=== PATIENT | female | born 1995 | race Caucasian/White ===

== ENCOUNTER 2017-01-07 13:38 | Emergency (ER) | payer BC, OTHER ==
[~2017-01-07] VITALS: Ht 167.6 cm; Wt 63.0 kg
[2017-01-07 13:43] VITALS: BP 111/67
[2017-01-07 14:35] LABS: BACTERIA,URINE MOD /HPF (0-FEW); BILIRUBIN,URINE NEG (NEG); CLARITY,URINE HAZY; COLOR,URINE YELLOW; GLUCOSE,URINE NEG (NEG); NITRITE,URINE NEG (NEG); RBC,URINE RARE /HPF (0-2); SQUAMOUS EPITHELIAL CELL,UR MANY /LPF; UROBILINOGEN,URINE 0.2 mg/dL (0.2 mg/dL); YEAST,URINE PRESENT /HPF
[2017-01-07] MEDS ORDERED: ONDANSETRON ODT 4 MG TAB.RAPDIS PO ONE (15:00)
[2017-01-07] MEDS ORDERED: FAMOTIDINE 20 MG TABLET PO ONE (15:00)
[2017-01-07] MEDS ORDERED: LIDO:MAALOX 1:1 20 ML SINGLE DOSE PO ONE (15:15)
--- NOTE | 2017-01-07 15:17 | ED.ADGEN ---
Past History Past Medical History: No Pertinent History Past Surgical History: No Surgical History Alcohol Use: None Drug Use: None Adult General Chief Complaint Chief Complaint Epigastric abdominal pain HPI HPI Patient is a 21-year-old female presents with epigastric, pain for 2 days. Patient states symptoms began with vomiting and diarrhea, vomiting and diarrhea have since subsided, but patient continues to have nausea and epigastric pain worse with eating and drinking. No fever chills or sweats. No hematuria dysuria or urinary frequency urgency. Denies dizziness or lightheadedness. No other acute symptoms or complaints.No prior abdominal surgeries. Review of Systems Review of Systems Review symptoms as per history of present illness. All other review symptoms are negative. Current Medications Current Medications Current Medications Medications (Trade) Dose Ordered Sig/Angie Start Time Stop Time Status Last Admin Dose Admin Famotidine (Pepcid) 20 mg 1X ONCE 01/07/17 15:00 01/07/17 15:01 DC 01/07/17 14:54 20 MG Multi-Ingredient Mouthwash/Gargle (Gi Cocktail) 20 ml 1X ONCE 01/07/17 15:15 01/07/17 15:16 01/07/17 15:08 20 ML Ondansetron HCl (Zofran Odt) 4 mg 1X ONCE 01/07/17 15:00 01/07/17 15:01 DC 01/07/17 14:54 4 MG Allergies Allergies Allergies Coded Allergies Type Severity Reaction Last Updated Verified No Known Drug Allergies 06/27/15 No Physical Exam Physical Exam Constitutional: Well developed, well nourished, no acute distress, non-toxic appearance. HENT: Normocephalic, atraumatic, bilateral external ears normal, oropharynx moist, no oral exudates, nose normal. Eyes: PERRLA, EOMI, conjunctiva normal. Neck: Normal range of motion, no tenderness, supple. Cardiovascular:Heart rate regular rhythm, no murmur. Lungs & Thorax: Bilateral breath sounds clear to auscultation. Abdomen: Bowel sounds normal, soft, mild epigastric pain, tenderness. Skin: Warm, dry. Back: No tenderness. Extremities: No tenderness. Neurologic: Alert and oriented X 3, normal motor function, normal sensory function, no focal deficits noted. Psychologic: Affect normal, judgement normal, mood normal. Current Patient Data Vital Signs Vital Signs Date Time Temp Pulse Resp B/P (MAP) Pulse Ox O2 Delivery O2 Flow Rate FiO2 01/07/17 13:43 97.6 86 14 97 Room Air Lab Results Laboratory Tests Test 01/07/17 14:00 01/07/17 14:11 Urine Collection Type Unknown Urine Color Yellow Urine Clarity Hazy Urine pH 7.5 Urine Specific [place] 1.020 Urine Protein Neg (NEG-TRACE) Urine Glucose (UA) Neg mg/dL (NEG) Urine Ketones (Stick) Trace mg/dL (NEG) Urine Blood Neg (NEG) Urine Nitrite Neg (NEG) Urine Bilirubin Neg (NEG) Urine Urobilinogen Dipstick 0.2 mg/dL (0.2 mg/dL) Urine Leukocyte Esterase Mod (NEG) Urine RBC Rare /HPF (0-2) Urine WBC 11-20 /HPF (0-4) Urine Squamous Epithelial Cells Many /LPF Urine Bacteria Mod /HPF (0-FEW) Urine Yeast Present /HPF POC Urine HCG, Qualitative hcg negative (Negative) EKG EKG [] Radiology/Procedures Radiology/Procedures [] Course & Med Decision Making Course & Med Decision Making Pertinent Labs and Imaging studies reviewed. (See chart for details) [And soft nonsurgical and repeat evaluation. Epigastric pain resolved with treatment. Final Impression Final Impression [1. Epigastric pain 2. Nausea vomiting] Problems: Dragon Disclaimer Dragon Disclaimer This electronic medical record was generated, in whole or in part, using a voice recognition dictation system. PARDEEP MERCER DO Jan 07, 2017 15:17
== END 2017-01-07 15:26 | disposition home or self-care (01) ==
LOC: ER 13:38
DX: R10.13 Epigastric pain (principal); R11.2 Nausea with vomiting, unspecified; R19.7 Diarrhea, unspecified
CPT/HCPCS: 81001; 81025; 87086; 99284; Q0162

== ENCOUNTER 2017-03-11 11:25 | Emergency (ER) | payer BC, OTHER ==
[~2017-03-11] VITALS: Ht 167.6 cm; Wt 63.0 kg
[2017-03-11 11:30] VITALS: BP 120/75
--- NOTE | 2017-03-11 12:08 | PHYS DOC ---
General Chief Complaint: ABDOMINAL PAIN Stated Complaint: ABDOMINAL PAIN Time Seen by MD: :29 Source: patient, old records Exam Limitations: no limitations Problems: History of Present Illness Initial Comments Pt is 22/F to ED c/o abdominal discomfort. Pt states she developed upper abdominal pain (she points to epigastrium) last night while eating some spicy foods. She describes the pain as achy/burning, says she did have some burping and admits to prior GERD symptoms. Her GERD symptoms resolved last night several hours after eating. She has been seen in the emergency department for GERD in the past but says she hasn't ever undertaken any dietary and lifestyle modifications and takes no daily medications for her GERD symptoms. She denies alcohol intake or excessive ibuprofen use, she's had no nausea or vomiting no fever chills and her appetite is intact. Today less than an hour before arrival she says she noticed shortly after eating that she had upper abdominal discomfort again. She says this pain is different as she has no pain at rest but has soreness with movement. It is located at the upper central abdomen she denies bloating flatulence or any other symptoms. No pre-arrival treatment. Patient started menstruating yesterday but says her periods have been irregular since the of her last child and she requests a urine test. Timing/Duration: 1 hour Severity: mild Modifying Factors: worse with movement, improves with rest Associated Symptoms: other Allergies: Coded Allergies: No Known Drug Allergies (Unverified , 06/27/15) Past Medical History Medical History: GERD Surgical History: noncontributory LMP (Females 10-50): this week Social History Smoker: non-smoker Alcohol: none Drugs: none Review of Systems Constitutional: denies chills, denies diaphoresis, denies fever, denies malaise EENTM: denies throat swelling, denies mouth swelling Respiratory: denies cough, denies shortness of breath Cardiovascular: denies chest pain, denies palpitations, denies syncope Gastrointestinal: see HPI Genitourinary: denies dysuria, denies frequency, denies hematuria Musculoskeletal: denies back pain, denies joint swelling, muscle pain, denies neck pain Psychiatric/Neurological: denies headache, denies numbness, denies paresthesia Physical Exam General Appearance: WD/WN, no apparent distress Eyes: bilateral eye normal inspection, bilateral eye PERRL, bilateral eye EOMI Ear, Nose, Throat: hearing grossly normal, normal ENT inspection, normal pharynx Neck: non-tender, supple Respiratory: normal breath sounds, no respiratory distress Cardiovascular: normal peripheral pulses, regular rate, rhythm Gastrointestinal: normal bowel sounds, soft (nondistended, negative Mann and McBurney and I am unable to reproduce her abdominal discomfort with palpation essentially normal exam), no organomegaly Rectal: deferred Back: no CVA tenderness, no vertebral tenderness Extremities: non-tender, normal inspection Neurologic/Psychiatric: small piece cutter II-XII nml as tested, no motor/sensory deficits, alert, oriented x 3 Skin: normal color, warm/dry Orders, Labs, Meds PATIENT: LATANYA ALMANZAR ACCOUNT: [id number] : 1995 LOCATION: ER AGE: 22 SEX: F EXAM STATUS: REG ER ORD. PHYSICIAN: LORIE RENTERIA DO REASON: recurrant epigastric pain PROCEDURE: ACUTE ABDOMEN SERIES Acute abdominal series to include a PA chest radiograph 03/11/2017 Clinical History: Epigastric pain for one day. A PA digital radiograph of the chest was obtained. Supine and erect AP digital radiographs of the abdomen/pelvis were obtained. No previous studies are available for comparison. The cardiac and mediastinal silhouettes are within normal limits in size and configuration. No pulmonary infiltrate is seen. No pleural effusion or pneumothorax is noted. The abdominal bowel gas pattern is nonobstructive. There is no evidence of free air. No radiopaque calculus is seen. The osseous structures are grossly intact. Impression: Negative study. DICTATED AND SIGNED BY: ILDEFONSO FRANK MD DATE: 03/11/17 1200 CC: SHIRA WILD DO; LORIE RENTERIA DO ~ Lipase 97, urine negative, urinalysis with large blood (menses) and leukocyte esterase Patient had no new or progressive symptoms throughout the ED course. Her vital signs remained normal and her evaluation in the emergency department has been reassuring. We'll treat empirically for UTI based on the presence of leukocyte esterase, I discussed urine culture and advised the patient that it would be resulted within 2-3 days. I discussed symptomatic treatment and dietary changes as well as close PCP follow-up for urine culture results and recheck. I discussed the need for GI evaluation and EGD with untreated reflux of 3 years duration. Patient expressed agreement and understanding with the treatment plan. Departure Time of Disposition: 13:35 Disposition: 01 HOME, SELF-CARE Diagnosis: GERD, UTI Condition: GOOD Patient Instructions: Diet for Gastroesophageal Reflux Disease, Adult, Easy-to- Read, Urinary Tract Infection Additional Instructions: Rest, no strenuous activity. Aggressive hydration with gatorade, water. OTC pepcid twice daily. Please review dietary recommendations in provided handout. Rx: bactrim ds Follow up with your doctor in 7-10 days for recheck and urine culture results. Return to ED with new or changing symptoms. LORIE RENTERIA DO Mar 11, 2017 12:08
[2017-03-11] MEDS ORDERED: LIDO:MAALOX 1:1 20 ML SINGLE DOSE PO ONE (12:10)
[2017-03-11] MEDS ORDERED: FAMOTIDINE 20 MG TABLET PO ONE (12:10)
--- NOTE | 2017-03-11 12:11 | RAD ---
Acute abdominal series to include a PA chest radiograph 03/11/2017 Clinical History: Epigastric pain for one day. A PA digital radiograph of the chest was obtained. Supine and erect AP digital radiographs of the abdomen/pelvis were obtained. No previous studies are available for comparison. The cardiac and mediastinal silhouettes are within normal limits in size and configuration. No pulmonary infiltrate is seen. No pleural effusion or pneumothorax is noted. The abdominal bowel gas pattern is nonobstructive. There is no evidence of free air. No radiopaque calculus is seen. The osseous structures are grossly intact. Impression: Negative study.
[2017-03-11 13:13] LABS: BILIRUBIN,URINE NEG (NEG); CLARITY,URINE CLOUDY; COLOR,URINE PINK; GLUCOSE,URINE NEG (NEG); NITRITE,URINE NEG (NEG); UROBILINOGEN,URINE 0.2 mg/dL (0.2 mg/dL)
[2017-03-11] MEDS ORDERED: SMZ/TMP 800/160MG TABLET. PO ONE (13:45)
== END 2017-03-11 13:45 | disposition home or self-care (01) ==
LOC: ER 11:25
DX: N39.0 Urinary tract infection, site not specified (principal); K21.9 Gastro-esophageal reflux disease without esophagitis
CPT/HCPCS: 36415; 74022; 81003; 81025; 83690; 99285-25

== ENCOUNTER 2017-03-14 10:15 | Emergency (ER) | payer OTHER ==
[~2017-03-14] VITALS: Ht 167.6 cm; Wt 63.0 kg
[2017-03-14] MEDS ORDERED: DIPH1TAB PO (10:57)
[2017-03-14] MEDS ORDERED: DICY10CA53 PO (10:57)
[2017-03-14] MEDS ORDERED: ONDA8TAB12 PO (10:57)
--- NOTE | 2017-03-14 10:57 | PHYS DOC ---
Past History Past Medical History: GERD Past Surgical History: No Surgical History Smoking: Non-smoker Alcohol Use: None Drug Use: None Adult General Chief Complaint Chief Complaint: MULTIPLE COMPLAINTS [facility] sHe is a pleasant 22-year-old female who was seen earlier this week for a complaint of urinary tract infection. She is appropriate started on Bactrim. Since that time patient felt a little bit of crampy abdominal pain throughout her abdomen mostly on the right left side and she believed to be associate with the way she was sleeping. She is also developed some nonbloody is non-mucoid stool described as loose and diarrheal. These symptoms are intermittent. She is also does express some ablative nausea without vomiting. Patient denies any fevers or chills denies any other sick contacts she also planes of menstrual cramping and she is presently on her menstrual period. Patient denies any fever , chills, headache, back pain, chest pain or other complaint. She is also supposed be on Pepcid right now for her reflux but she has not been taking this medication. She denies any travel outside the country, denies any consumption of raw food, handling of poultry, handling of reptiles, or consumption of uncooked fish. Review of Systems Review of Systems Constitutional: Denies fever or chills [] Eyes: Denies change in visual acuity, redness, or eye pain [] HENT: Denies nasal congestion or sore throat [] Respiratory: Denies cough or shortness of breath [] Cardiovascular: No additional information not addressed in HPI [] GI: She has complained of abdominal pain that is crampy in nature with nausea without vomiting diarrhea without blood or mucus. : Denies dysuria or hematuria [] Musculoskeletal: Denies back pain or joint pain [] Integument: Denies rash or skin lesions [] Neurologic: Denies headache, focal weakness or sensory changes [] Endocrine: Denies polyuria or polydipsia [] Allergies Allergies Allergies Coded Allergies Type Severity Reaction Last Updated Verified No Known Drug Allergies 06/27/15 No Physical Exam Physical Exam Vital signs recorded on the chart all within normal limits. Constitutional: Well developed, well nourished, no acute distress, non-toxic appearance. [] HENT: Normocephalic, atraumatic, bilateral external ears normal, slightly dry oropharynx, no oral exudates, nose normal. [] Eyes: PERRLA, EOMI, conjunctiva normal, no discharge. [] Cardiovascular:Heart rate regular rhythm, no murmur [] Lungs & Thorax: Bilateral breath sounds clear to auscultation [] Abdomen: Bowel sounds normal, soft, no tenderness, no masses, no pulsatile masses she has no guarding rebound or organomegaly no Mann's or McBurney's point tenderness palpation Skin: Warm, dry, no erythema, no rash. [] Back: No tenderness, no CVA tenderness. [] Extremities: No tenderness, no cyanosis, no clubbing, ROM intact, no edema. [] Neurologic: Alert and oriented X 3 Psychologic: Affect normal, judgement normal, mood normal. [] EKG EKG [] Radiology/Procedures Radiology/Procedures [] Course & Med Decision Making Course & Med Decision Making Pertinent Labs and Imaging studies reviewed. (See chart for details) she presents with crampy abdominal pain and diarrhea that began after the initiation of Bactrim. This may actually be a side effect of that medication. Patient's abdomen is soft without any focal tenderness to the right lower quadrant she is not peritoneal. She demonstrates no fever she has normal appetite with nausea and she is hungry at this time. Patient demonstrates no evidence of surgical abdomen. Her point care urine test is negative. She was able to tolerate a fluid challenge as well as nausea is improved with oral Zofran. We discussed completed a course of antibiotics which is appropriate given her UTI. She'll be given supportive medications like Lomotil as well as Bentyl for crampy abdominal pain and close follow-up with her primary care doctor. At this time I do not believe she 7 from appendicitis or small bowel obstruction. My abdominal pain differential includes but not limited to ectopic , UTI, pyonephritis, cholecystitis, cholelithiasis, pancreatitis, appendicitis, small bowel obstruction, large bowel obstruction, diverticulosis, Diverticulum, intussusception, volvulus, irritable bowel disease, Crohn's or ulcerative colitis, considered upon arrival [] Dragon Disclaimer Dragon Disclaimer This chart was dictated in whole or in part using Voice Recognition software in a busy, high-work load, and often noisy Emergency Department environment. It may contain unintended and wholly unrecognized errors or omissions. Departure Departure: Impression: Primary Impression: Diarrhea Additional Impressions: Menstrual cramps Nausea Abdominal pain Disposition: HOME, SELF-CARE Condition: IMPROVED Referrals: SHIRA WILD DO (PCP) Patient Instructions: Abdominal Pain, Antibiotic-Associated Diarrhea-Brief, Diarrhea, Diet for Diarrhea, Adult, Nausea, Adult Additional Instructions: Is return for any new or increasing symptoms especially if the pain localizes in the right lower quadrant. It is my assessment today do not is suffering from appendicitis. But this can be developed in the future. Please return for any question or concern she might have. Scripts Ondansetron (ZOFRAN ODT) 8 Mg Tab.rapdis 4 MG PO TID for 5 Days Prov: QUINCY CÁRDENAS MD 03/14/17 Diphenoxylate Hcl/Atropine (LOMOTIL TABLET) 1 Each Tablet 1 TAB PO QID, #20 TAB Prov: QUINCY CÁRDENAS MD 03/14/17 Dicyclomine Hcl (BENTYL) 10 Mg Capsule 1 CAP PO TID, #15 CAP.EC Prov: QUINCY CÁRDENAS MD 03/14/17 Problem Qualifiers QUINCY CÁRDENAS MD Mar 14, 2017 10:57
[2017-03-14] MEDS ORDERED: ONDANSETRON ODT 4 MG TAB.RAPDIS PO ONE (11:00)
[2017-03-14 11:30] VITALS: BP 118/62
== END 2017-03-14 11:33 | disposition home or self-care (01) ==
LOC: ER 10:15
DX: N94.6 Dysmenorrhea, unspecified (principal); K21.9 Gastro-esophageal reflux disease without esophagitis
CPT/HCPCS: 81025; 99283; Q0162

== ENCOUNTER 2017-05-18 09:52 | Emergency (ER) | payer OTHER ==
[~2017-05-18] VITALS: Ht 167.6 cm; Wt 54.4 kg
[~2017-05-18 09:52] MED LIST: DICY10CA53 PO; DIPH1TAB PO; ONDA8TAB12 PO
[2017-05-18 11:16] LABS: BILIRUBIN,URINE NEG (NEG); CLARITY,URINE CLOUDY; COLOR,URINE YELLOW; GLUCOSE,URINE NEG (NEG); NITRITE,URINE NEG (NEG); UROBILINOGEN,URINE 1 mg/dL (0.2 mg/dL)
[2017-05-18 11:17] LABS: AMORPHOUS SEDIMENT,UR PRESENT /HPF; BACTERIA,URINE FEW /HPF (0-FEW); RBC,URINE RARE /HPF (0-2); SQUAMOUS EPITHELIAL CELL,UR MANY /LPF
--- NOTE | 2017-05-18 12:04 | PHYS DOC ---
Past History Past Medical History: Anxiety, Constipation, GERD, UTI Past Surgical History: Tonsillectomy Smoking: Non-smoker Alcohol Use: None Drug Use: None Adult General Chief Complaint Chief Complaint: ANXIETY/PANIC ATTACK HPI HPI Patient is a 22 year old F who presents with anxiety. Lola states that she has had more frequent anxiety attacks over the past several days. She describes occasional sharp chest pain associated with these attacks. She also describes mild dizziness associated with attacks. Her last attack was last night. She denies any current symptoms at this time. Review of Systems Review of Systems Constitutional: Denies fever or chills [] Eyes: Denies change in visual acuity, redness, or eye pain [] HENT: Denies nasal congestion or sore throat [] Respiratory: Denies cough or shortness of breath [] Cardiovascular: No additional information not addressed in HPI [] GI: Denies abdominal pain, nausea, vomiting, bloody stools or diarrhea [] : Denies dysuria or hematuria [] Musculoskeletal: Denies back pain or joint pain [] Integument: Denies rash or skin lesions [] Neurologic: Denies headache, focal weakness or sensory changes [] Endocrine: Denies polyuria or polydipsia [] Family History Family History Reviewed Current Medications Current Medications Medications reviewed Allergies Allergies Allergies Coded Allergies Type Severity Reaction Last Updated Verified No Known Drug Allergies 06/27/15 No Physical Exam Physical Exam Constitutional: Well developed, well nourished, no acute distress, non-toxic appearance. [] HENT: Normocephalic, atraumatic Eyes: PERRLA, EOMI, conjunctiva normal, no discharge. [] Neck: Normal range of motion, no tenderness, supple, no stridor. [] Cardiovascular:Heart rate regular rhythm, no murmur [] Lungs & Thorax: Bilateral breath sounds clear to auscultation [] Abdomen: Bowel sounds normal, soft, no tenderness, no masses, no pulsatile masses. [] Skin: Warm, dry, no erythema, no rash. [] Back: No tenderness, no CVA tenderness. [] Extremities: No tenderness, no cyanosis, no clubbing, ROM intact, no edema. [] Neurologic: Alert and oriented X 3, normal motor function, normal sensory function, no focal deficits noted. [] Psychologic: Affect normal, judgement normal, mood normal. [] Current Patient Data Vital Signs Vital Signs Date Time Temp Pulse Resp B/P (MAP) Pulse Ox O2 Delivery O2 Flow Rate FiO2 05/18/17 10:03 97.6 90 18 100 Lab Results Laboratory Tests Test 05/18/17 10:42 05/18/17 11:00 Urine Collection Type Unknown Urine Color Yellow Urine Clarity Cloudy Urine pH 6.5 Urine Specific [place] 1.025 Urine Protein 30 mg/dl (NEG-TRACE) Urine Glucose (UA) Neg mg/dL (NEG) Urine Ketones (Stick) 40 mg/dL (NEG) Urine Blood Neg (NEG) Urine Nitrite Neg (NEG) Urine Bilirubin Neg (NEG) Urine Urobilinogen Dipstick 1 mg/dL (0.2 mg/dL) Urine Leukocyte Esterase Mod (NEG) Urine RBC Rare /HPF (0-2) Urine WBC 11-20 /HPF (0-4) Urine Squamous Epithelial Cells Many /LPF Urine Amorphous Sediment Present /HPF Urine Bacteria Few /HPF (0-FEW) Urine Mucus Marked /LPF POC Urine HCG, Qualitative hcg negative (Negative) EKG EKG Normal sinus rhythm, no ectopy, normal QRS, no ST changes Radiology/Procedures Radiology/Procedures Imaging was declined Course & Med Decision Making Course & Med Decision Making Pertinent Labs and Imaging studies reviewed. (See chart for details) [] Dragon Disclaimer Dragon Disclaimer This chart was dictated in whole or in part using Voice Recognition software in a busy, high-work load, and often noisy Emergency Department environment. It may contain unintended and wholly unrecognized errors or omissions. Departure Departure: Impression: Primary Impression: Anxiety Disposition: HOME, SELF-CARE Condition: STABLE Referrals: SHIRA WILD DO (PCP) Patient Instructions: Anxiety and Panic Attacks Additional Instructions: Lola was seen in the emergency department for anxiety. No emergency medical condition was found on history or physical exam. Her symptoms are most consistent with anxiety. She was advised consider meditation. She was also advised follow-up with a primary care doctor in order to establish care and develop a management plan as soon as possible. KATERYNA CHARLES MD May 18, 2017 12:03
[2017-05-18 12:20] VITALS: BP 116/70
== END 2017-05-18 12:30 | disposition home or self-care (01) ==
LOC: ER 09:52
DX: F41.9 Anxiety disorder, unspecified (principal); K21.9 Gastro-esophageal reflux disease without esophagitis; Z87.440 Personal history of urinary (tract) infections
CPT/HCPCS: 81001; 81025; 99284

== ENCOUNTER 2017-10-16 18:27 | Emergency (ER) | payer OTHER ==
[~2017-10-16] VITALS: Ht 170.2 cm; Wt 59.0 kg
[2017-10-16 18:52] VITALS: BP 135/77
[2017-10-16] MEDS ORDERED: FAMO-63 PO (19:05)
[2017-10-16] MEDS ORDERED: ONDA4TAB10 SL (19:05)
--- NOTE | 2017-10-16 19:06 | PHYS DOC ---
Past History Past Medical History: No Pertinent History Past Surgical History: No Surgical History Smoking: Non-smoker Alcohol Use: None Drug Use: None Adult General Chief Complaint Chief Complaint: MULTIPLE COMPLAINTS HPI HPI Patient is a 22-year-old female who presents here today complaining of midepigastric pain dizziness and nausea. Patient has any fevers shakes chills cough cold rhinorrhea dysuria frequency urgency vaginal bleeding or vaginal discharge. Patient reports today she ate 4.She is HUNGRY AND SHE IS NOT SURE WHY. PATIENT THOUGHT THAT SHE MIGHT BE . Review of systems: Constitutional: Denies fever or chills Eyes: Denies change in visual acuity, redness, or eye pain HENT: Denies nasal congestion or sore throat Respiratory: Denies cough or shortness of breath All other systems were reviewed and found to be within normal limits, except as documented in this note. Physical exam: Constitutional: Well developed, well nourished, no acute distress, non-toxic appearance. HENT: Normocephalic, atraumatic, bilateral external ears normal, nose normal. Eyes: PERRLA, EOMI, conjunctiva normal, no discharge. Neck: Normal range of motion, no tenderness, supple, no stridor. Cardiovascular: Heart rate regular rhythm, Lungs & Thorax: Bilateral breath sounds clear to auscultation Abdomen: No abdominal distention. Skin: Warm, dry, no erythema, no rash. Back: Normal spinal curvature Extremities: No tenderness, no cyanosis, no clubbing, ROM intact, no edema. Neurologic: Alert and oriented X 3, normal motor function, normal sensory function, no focal deficits noted. Psychologic: Affect normal, judgement normal, mood normal. Abdomen soft nontender no rebound or guarding NABS. No Mann sign, no tenderness to McBurney's point. Patient not present with any signs or symptoms of be consistent with an acute surgical abdomen. Assessment and plan: 1. Abdominal discomfort, etiology unclear likely secondary to gastritis. Patient feels better after the Zofran and GI cocktail. Patient be discharged home in stable condition and instructed to follow-up with her primary care physician for further evaluation. Patient's presentation is not consistent with an acute surgical abdomen and further workup and 80 is not indicated. Patient's urinalysis was negative. Patient has no urinary symptoms there for a UA is not indicated. Current Medications Current Medications Current Medications Medications (Trade) Dose Ordered Sig/Angie Start Time Stop Time Status Last Admin Dose Admin Multi-Ingredient Mouthwash/Gargle (Gi Cocktail) 20 ml 1X ONCE 10/16/17 19:15 10/16/17 19:16 10/16/17 19:02 20 ML Ondansetron HCl (Zofran Odt) 4 mg 1X ONCE 10/16/17 19:15 10/16/17 19:16 10/16/17 19:02 4 MG Allergies Allergies Allergies Coded Allergies Type Severity Reaction Last Updated Verified No Known Drug Allergies 06/27/15 No Current Patient Data Vital Signs Vital Signs Date Time Temp Pulse Resp B/P (MAP) Pulse Ox O2 Delivery O2 Flow Rate FiO2 10/16/17 18:52 98.7 85 18 95 Room Air Lab Results Laboratory Tests Test 10/16/17 17:49 POC Urine HCG, Qualitative hcg negative (Negative) EKG EKG [] Radiology/Procedures Radiology/Procedures [] Course & Med Decision Making Course & Med Decision Making Pertinent Labs and Imaging studies reviewed. (See chart for details) [] Dragon Disclaimer Dragon Disclaimer This electronic medical record was generated, in whole or in part, using a voice recognition dictation system. Departure Departure: Impression: Primary Impression: Gastritis Disposition: 01 HOME, SELF-CARE Condition: IMPROVED Referrals: SAURABH FERNANDEZ APRN (PCP) Patient Instructions: Gastritis, Adult Scripts Ondansetron (ZOFRAN ODT) 4 Mg Tab.rapdis 1 TAB SL Q8HRS for NAUSEA, #15 TAB Prov: EVELINE HER MD 10/16/17 Famotidine (PEPCID) 20 Mg Tablet 1 TAB PO BID, #10 TAB 0 Refills Prov: EVELINE HER MD 10/16/17 EVELINE HER MD Oct 16, 2017 19:06
[2017-10-16] MEDS ORDERED: ONDANSETRON ODT 4 MG TAB.RAPDIS PO ONE (19:15)
[2017-10-16] MEDS ORDERED: LIDO:MAALOX 1:1 20 ML SINGLE DOSE PO ONE (19:15)
== END 2017-10-16 19:10 | disposition home or self-care (01) ==
LOC: ER 18:27
DX: K29.70 Gastritis, unspecified, without bleeding (principal)
CPT/HCPCS: 81025; 99283; Q0162

== ENCOUNTER 2018-03-07 16:03 | Emergency (ER) | payer OTHER ==
[~2018-03-07 16:03] MED LIST changes: +FAMO-63 PO; +ONDA4TAB10 SL
[2018-03-07 16:34] VITALS: BP 114/51
[2018-03-07 17:05] LABS: BACTERIA,URINE FEW /HPF (0-FEW); BILIRUBIN,URINE NEG (NEG); CLARITY,URINE HAZY; COLOR,URINE YELLOW; GLUCOSE,URINE NEG (NEG); NITRITE,URINE NEG (NEG); SQUAMOUS EPITHELIAL CELL,UR MOD /LPF; UROBILINOGEN,URINE 0.2 mg/dL (0.2 mg/dL)
[2018-03-07 17:09] LABS: U PREG PATIENT NEGATIVE (NEG)
[2018-03-07] MEDS ORDERED: IV NORMAL SALINE 1,000ML 1,000 ML IV ONE (17:45)
[2018-03-07] MEDS ORDERED: ONDANSETRON PF 4 MG/2 ML VIAL. IV ONE (17:45)
[2018-03-07 18:24] LABS: BASO % 0 % (0-3); EOS # 0.1 x10^3/uL (0.0-0.7); EOS % 1 % (0-3); HEMATOCRIT 43.4 % (36.0-47.0); HEMOGLOBIN 14.3 g/dL (12.0-15.5); LYMPH # 1.1 x10^3/uL (1.0-4.8); LYMPH % 12 % (24-48); MEAN CORPUSCULAR HEMOGLOBIN 29 pg (25-35); MEAN CORPUSCULAR HGB CONC 33 g/dL (31-37); MEAN CORPUSCULAR VOLUME 88 fL (79-100); MONO # 0.6 x10^3/uL (0.0-1.1); MONO % 6 % (0-9); NEUT # 7.4 x10^3uL (1.8-7.7); NEUT % 81 % (31-73); PLATELET COUNT 277 x10^3/uL (140-400); RED BLOOD COUNT 4.92 x10^6/uL (3.50-5.40); RED CELL DISTRIBUTION WIDTH 14.5 % (11.5-14.5); WHITE BLOOD COUNT 9.1 x10^3/uL (4.0-11.0)
[2018-03-07 18:32] LABS: CALCIUM 9.6 mg/dL (8.5-10.1); CREATININE 0.7 mg/dL (0.6-1.0); GFR 103.7; POTASSIUM 3.6 mmol/L (3.5-5.1)
--- NOTE | 2018-03-07 18:35 | PHYS DOC ---
Past History Past Medical History: No Pertinent History Past Surgical History: No Surgical History Smoking: Non-smoker Alcohol Use: Occasionally Drug Use: None Adult General Chief Complaint Chief Complaint: ABDOMINAL PAIN HPI HPI 23-year-old female presents with abdominal pain, diarrhea, and nausea. She has had intermittent abdominal pain for 4 days that is diffuse and seems to come and go. She is unsure what is causing it. She developed diarrhea 2 days ago and has had no normal bowel movement since. She describes it as watery, nonbloody, and brownish in color. She has cramping with bowel movements. She has been nauseated most the last 4 days, but has not been vomiting. She is not believe she had any bad food. No one else her household is sick. She has not been camping or drinking unsafe water. She recently took a test was negative. She is sexually active. She denies any vaginal discharge. Review of Systems Review of Systems Constitutional: Denies fever or chills [] Eyes: Denies change in visual acuity, redness, or eye pain [] HENT: Denies nasal congestion or sore throat [] Respiratory: Denies cough or shortness of breath [] Cardiovascular: No additional information not addressed in HPI [] GI: Denies abdominal pain, vomiting, bloody stools. Has nausea and diarrhea. [] : Denies dysuria or hematuria [] Musculoskeletal: Denies back pain or joint pain [] Integument: Denies rash or skin lesions [] Neurologic: Denies headache, focal weakness or sensory changes [] Endocrine: Denies polyuria or polydipsia [] All other systems were reviewed and found to be within normal limits, except as documented in this note. Current Medications Current Medications Current Medications Medications (Trade) Dose Ordered Sig/Angie Start Time Stop Time Status Last Admin Dose Admin Ondansetron HCl (Zofran) 4 mg 1X ONCE 03/07/18 17:45 03/07/18 17:46 DC 03/07/18 18:06 4 MG Sodium Chloride 1,000 ml @ 1,000 mls/hr 1X ONCE 03/07/18 17:45 03/07/18 18:44 03/07/18 18:07 1,000 MLS/HR Allergies Allergies Allergies Coded Allergies Type Severity Reaction Last Updated Verified No Known Drug Allergies 06/27/15 No Physical Exam Physical Exam Constitutional: Well developed, well nourished, no acute distress, non-toxic appearance. [] HENT: Normocephalic, atraumatic, bilateral external ears normal, oropharynx moist, no oral exudates, nose normal. [] Eyes: PERRLA, EOMI, conjunctiva normal, no discharge. [] Neck: Normal range of motion, no tenderness, supple, no stridor. [] Cardiovascular:Heart rate regular rhythm, no murmur [] Lungs & Thorax: Bilateral breath sounds clear to auscultation [] Abdomen: Bowel sounds normal, soft, no tenderness, no masses, no pulsatile masses. [] Skin: Warm, dry, no erythema, no rash. [] Back: No tenderness, no CVA tenderness. [] Extremities: No tenderness, no cyanosis, no clubbing, ROM intact, no edema. [] Neurologic: Alert and oriented X 3, normal motor function, normal sensory function, no focal deficits noted. [] Psychologic: Affect normal, judgement normal, mood normal. [] Current Patient Data Vital Signs Vital Signs Date Time Temp Pulse Resp B/P (MAP) Pulse Ox O2 Delivery O2 Flow Rate FiO2 03/07/18 16:34 87 16 97 Room Air Lab Results Laboratory Tests Test 03/07/18 16:25 03/07/18 18:06 Urine Collection Type Unknown Urine Color Yellow Urine Clarity Hazy Urine pH 6.0 Urine Specific [place] >=1.030 Urine Protein Neg (NEG-TRACE) Urine Glucose (UA) Neg mg/dL (NEG) Urine Ketones (Stick) Neg mg/dL (NEG) Urine Blood Neg (NEG) Urine Nitrite Neg (NEG) Urine Bilirubin Neg (NEG) Urine Urobilinogen Dipstick 0.2 mg/dL (0.2 mg/dL) Urine Leukocyte Esterase Small (NEG) Urine RBC 3-5 /HPF (0-2) Urine WBC 11-20 /HPF (0-4) Urine Squamous Epithelial Cells Mod /LPF Urine Bacteria Few /HPF (0-FEW) Urine Mucus Marked /LPF Urine Test Negative (NEG) White Blood Count 9.1 x10^3/uL (4.0-11.0) Red Blood Count 4.92 x10^6/uL (3.50-5.40) Hemoglobin 14.3 g/dL (12.0-15.5) Hematocrit 43.4 % (36.0-47.0) Mean Corpuscular Volume 88 fL (79-100) Mean Corpuscular Hemoglobin 29 pg (25-35) Mean Corpuscular Hemoglobin Concent 33 g/dL (31-37) Red Cell Distribution Width 14.5 % (11.5-14.5) Platelet Count 277 x10^3/uL (140-400) Neutrophils (%) (Auto) 81 % (31-73) H Lymphocytes (%) (Auto) 12 % (24-48) L Monocytes (%) (Auto) 6 % (0-9) Eosinophils (%) (Auto) 1 % (0-3) Basophils (%) (Auto) 0 % (0-3) Neutrophils # (Auto) 7.4 x10^3uL (1.8-7.7) Lymphocytes # (Auto) 1.1 x10^3/uL (1.0-4.8) Monocytes # (Auto) 0.6 x10^3/uL (0.0-1.1) Eosinophils # (Auto) 0.1 x10^3/uL (0.0-0.7) Basophils # (Auto) 0.0 x10^3/uL (0.0-0.2) EKG EKG [] Radiology/Procedures Radiology/Procedures [] Course & Med Decision Making Course & Med Decision Making Pertinent Labs and Imaging studies reviewed. (See chart for details) The patient is not . Her labs are unremarkable. Her KUB shows moderate stool burden. Her urinalysis does have white cells and small leukocyte esterase , but many epithelials. I will treat the patient with Keflex for 3 days. I do not see any other cause for her diarrhea or abdominal discomfort. I will recommend that she use Lomotil as needed for the diarrhea and stay well- hydrated. [] Dragon Disclaimer Dragon Disclaimer This electronic medical record was generated, in whole or in part, using a voice recognition dictation system. Departure Departure: Referrals: PCP,SHIKHA (PCP) PARDEEP HOOVER DO Mar 07, 2018 18:35
[2018-03-07] MEDS ORDERED: CEPH-264 PO (18:50)
--- NOTE | 2018-03-07 22:04 | RAD ---
AP abdomen radiograph 03/07/2018 CLINICAL HISTORY: Abdominal pain and diarrhea. An AP supine digital radiograph of the abdomen/pelvis was obtained. Comparison study is dated 03/11/2017. The abdominal bowel gas pattern is nonobstructive. No radiopaque calculus is seen. The osseous structures are grossly intact. IMPRESSION: Negative study. Electronically signed by: Cristiano Alba MD (03/07/2018 10:00 PM) [facility]
== END 2018-03-07 19:05 | disposition home or self-care (01) ==
LOC: ER 16:03
DX: R19.7 Diarrhea, unspecified (principal); N39.0 Urinary tract infection, site not specified
CPT/HCPCS: 36415; 74018; 80048; 81001; 81025; 85025; 87086; 96361; 96374; 99285; J2405; J7030

== ENCOUNTER 2018-04-14 17:41 | Emergency (ER) | payer OTHER ==
[~2018-04-14] VITALS: Ht 167.6 cm; Wt 64.4 kg
[~2018-04-14 17:41] MED LIST changes: +CEPH-264 PO
[2018-04-14 17:45] VITALS: BP 105/51
--- NOTE | 2018-04-14 18:03 | ED.ADGEN ---
Past History Past Medical History: No Pertinent History Past Surgical History: No Surgical History Smoking: Non-smoker Alcohol Use: Occasionally Drug Use: None Adult General Chief Complaint Chief Complaint ".. I getting really bad dental pain.. here ( Points to teeth 4 and 5)" [facility] HPI Patient is a 23 year old female who presents with above hx and complaints of dental pain in teeth 4 and 5. Patient has multiple areas of decay and gingivitis. No trismus. No adenopathy. No pointing abscesses. No history immunosuppression. Patient rates her pain earlier tonight is 8 at to 9 out of 10. Patient has dental insurance but only pays for extraction. Review of Systems Review of Systems Constitutional: Denies fever or chills [] Eyes: Denies change in visual acuity, redness, or eye pain [] HENT: Denies nasal congestion or sore throat []complaints of dental pain Respiratory: Denies cough or shortness of breath [] Cardiovascular: No additional information not addressed in HPI [] GI: Denies abdominal pain, nausea, vomiting, bloody stools or diarrhea [] : Denies dysuria or hematuria [] Musculoskeletal: Denies back pain or joint pain [] Integument: Denies rash or skin lesions [] Neurologic: Denies headache, focal weakness or sensory changes [] Endocrine: Denies polyuria or polydipsia [] All other systems were reviewed and found to be within normal limits, except as documented in this note. Family History Family History Noncontributory Current Medications Current Medications Current Medications Medications (Trade) Dose Ordered Sig/Angie Start Time Stop Time Status Last Admin Dose Admin Cephalexin HCl (Keflex) 500 mg 1X ONCE 04/14/18 19:00 04/14/18 19:01 DC 04/14/18 19:05 500 MG Oxycodone/ Acetaminophen (Percocet 5/325) 1 tab 1X ONCE 04/14/18 19:00 04/14/18 19:01 DC 04/14/18 19:05 1 TAB See nursing for home meds Allergies Allergies Allergies Coded Allergies Type Severity Reaction Last Updated Verified No Known Drug Allergies 06/27/15 No Physical Exam Physical Exam Constitutional: In acute distress, non-toxic appearance. [] HENT: Normocephalic, atraumatic, bilateral external ears normal, oropharynx moist, no oral exudates, nose normal. Multiple areas of dental Decay. Pain in teeth 4 and 5. Eyes: PERRLA, EOMI, conjunctiva normal, no discharge. [] Neck: Normal range of motion, no tenderness, supple, no stridor. [] Cardiovascular:Heart rate regular rhythm, no murmur [] Lungs & Thorax: Bilateral breath sounds equal at apexes on auscultation [] Abdomen: Bowel sounds normal, soft, no tenderness, no masses, no pulsatile masses. [] Skin: Warm, dry, no erythema, no rash. [] Back: No tenderness, no CVA tenderness. [] Extremities: No tenderness, no cyanosis, no clubbing, ROM intact, no edema. [] Neurologic: Alert and oriented X 3, normal motor function, normal sensory function, no focal deficits noted. [] Psychologic: Affect anxious, judgement normal, mood normal. [] Current Patient Data Vital Signs Vital Signs Date Time Temp Pulse Resp B/P (MAP) Pulse Ox O2 Delivery O2 Flow Rate FiO2 04/14/18 19:05 20 97 04/14/18 17:45 98.8 75 Room Air Lab Results Laboratory Tests Test 04/14/18 17:40 04/14/18 18:18 POC Urine HCG, Qualitative hcg negative (Negative) Urine Collection Type Unknown Urine Color Yellow Urine Clarity Clear Urine pH 5.5 Urine Specific [place] 1.025 Urine Protein Neg (NEG-TRACE) Urine Glucose (UA) Neg mg/dL (NEG) Urine Ketones (Stick) Neg mg/dL (NEG) Urine Blood Neg (NEG) Urine Nitrite Neg (NEG) Urine Bilirubin Neg (NEG) Urine Urobilinogen Dipstick 0.2 mg/dL (0.2 mg/dL) Urine Leukocyte Esterase Neg (NEG) Urine RBC Occ /HPF (0-2) Urine WBC Occ /HPF (0-4) Urine Squamous Epithelial Cells Few /LPF Urine Bacteria 0 /HPF (0-FEW) Urine Opiates Screen Neg (NEG) Urine Methadone Screen Neg (NEG) Urine Barbiturates Neg (NEG) Urine Phencyclidine Screen Neg (NEG) Urine Amphetamine/Methamphetamine Neg (NEG) Urine Benzodiazepines Screen Neg (NEG) Urine Cocaine Screen Neg (NEG) Urine Cannabinoids Screen Neg (NEG) Urine Ethyl Alcohol Neg (NEG) EKG EKG [] Radiology/Procedures Radiology/Procedures [] Course & Med Decision Making Course & Med Decision Making Pertinent Labs and Imaging studies reviewed. (See chart for details). Patient take Keflex 500 mg 3 times a day. Patient take Tylenol and ibuprofen for pain. May take Vicoprofen up 4 times a day for marked pain. Patient follow- up primary care. Patient follow-up tenderness. Further narcotics must be supplied by primary care or dentist. [] Final Impression Final Impression 1. Dental pain[] 2. Multiple dental cavities. Dragon Disclaimer Dragon Disclaimer This electronic medical record was generated, in whole or in part, using a voice recognition dictation system. GORDON ASCENCIO MD Apr 14, 2018 18:03
[2018-04-14] MEDS ORDERED: CEPH-264 PO (18:54)
[2018-04-14] MEDS ORDERED: OXYC-323 PO (18:54)
[2018-04-14] MEDS ORDERED: oxyCODONE/APAP 5/325 1 TAB TABLET PO ONE (19:00)
[2018-04-14] MEDS ORDERED: CEPHALEXIN 250 MG CAPSULE PO ONE (19:00)
[2018-04-14 19:15] LABS: AMPHETAMINE/METHAMPHETAMINE NEG (NEG); BARBITURATES NEG (NEG); BENZODIAZEPINES NEG (NEG); CANNABINOIDS NEG (NEG); COCAINE NEG (NEG); METHADONE NEG (NEG); OPIATES NEG (NEG); PHENCYCLIDINE NEG (NEG)
[2018-04-14 19:20] LABS: BILIRUBIN,URINE NEG (NEG); CLARITY,URINE CLEAR; COLOR,URINE YELLOW; GLUCOSE,URINE NEG (NEG); NITRITE,URINE NEG (NEG); UROBILINOGEN,URINE 0.2 mg/dL (0.2 mg/dL)
[2018-04-14 19:21] LABS: BACTERIA,URINE 0 /HPF (0-FEW); RBC,URINE OCC /HPF (0-2); SQUAMOUS EPITHELIAL CELL,UR FEW /LPF; WBC,URINE OCC /HPF (0-4)
== END 2018-04-14 19:14 | disposition home or self-care (01) ==
LOC: ER 17:41
DX: K02.9 Dental caries, unspecified (principal); K05.10 Chronic gingivitis, plaque induced
CPT/HCPCS: 36415; 80307; 81001; 81025; 99284; G0479

== ENCOUNTER 2018-08-12 18:01 | Emergency (ER) | payer OTHER ==
[~2018-08-12] VITALS: Ht 170.2 cm; Wt 71.7 kg
[2018-08-12 18:01] VITALS: BP 108/82
[~2018-08-12 18:01] MED LIST changes: +OXYC1TAB15 PO
--- NOTE | 2018-08-12 18:43 | PHYS DOC ---
Past History Past Medical History: Anxiety, UTI Past Surgical History: No Surgical History Smoking: Non-smoker Alcohol Use: Occasionally Drug Use: None Adult General Chief Complaint Chief Complaint: HEADACHE HPI HPI Patient is a 23 year old female who presents with complaint of nausea and headache. Patient states her symptoms started approximately one week ago. Patient states that her headache has been frontal. Denies any radiation. Describes pain as dull. Denies any associated loss of vision, numbness, weakness , or difficulty with speech or swallowing. Patient does not remember her last menstrual period. Patient states that she may be and thus came to the emergency department for evaluation. Patient states she took Tylenol yesterday for headache but has taken no medications for symptoms today. Patient states that she vomited shortly before arrival today. Denies any chest pain or abdominal pain. Review of Systems Review of Systems Constitutional: Denies fever or chills [] Eyes: Denies change in visual acuity, redness, or eye pain [] HENT: Denies nasal congestion or sore throat [] Respiratory: Denies cough or shortness of breath [] Cardiovascular: Denies chest pain or edema [] GI: nausea, vomiting, denies abdominal pain,bloody stools or diarrhea [] : Denies dysuria or hematuria [] Musculoskeletal: Denies back pain or joint pain [] Integument: Denies rash or skin lesions [] Neurologic: headache, deniesfocal weakness or sensory changes [] Endocrine: Denies polyuria or polydipsia [] All other systems were reviewed and found to be within normal limits, except as documented in this note. Current Medications Current Medications Current Medications Medications (Trade) Dose Ordered Sig/[facility] Start Time Stop Time Status Last Admin Dose Admin Acetaminophen (Tylenol) 1,000 mg 1X ONCE 08/12/18 18:45 08/12/18 18:46 UNV Allergies Allergies Allergies Coded Allergies Type Severity Reaction Last Updated Verified No Known Drug Allergies 06/27/15 No Physical Exam Physical Exam Constitutional: alert, afebrile, no acute distress. [] HENT: Normocephalic, atraumatic, bilateral external ears normal, oropharynx moist, no oral exudates, nose normal. [] Eyes: PERRLA, EOMI, conjunctiva normal, no discharge. [] Neck: Normal range of motion, no tenderness, supple, no stridor. [] Cardiovascular:Heart rate regular rhythm, no murmur [] Lungs & Thorax: Bilateral breath sounds clear to auscultation [] Abdomen: Bowel sounds normal, soft, no tenderness, no masses, no pulsatile masses. [] Skin: Warm, dry, no erythema, no rash. [] Back: No tenderness, no CVA tenderness. [] Extremities: No tenderness, no cyanosis, no clubbing, ROM intact, no edema. [] Neurologic: Alert and oriented X 3, normal motor function, normal sensory function, no focal deficits noted. [] Current Patient Data Vital Signs Vital Signs Date Time Temp Pulse Resp B/P (MAP) Pulse Ox O2 Delivery O2 Flow Rate FiO2 08/12/18 18:01 98.1 78 18 99 Room Air Lab Results Laboratory Tests Test 08/12/18 18:47 08/12/18 18:54 Urine Collection Type Unknown Urine Color Straw Urine Clarity Clear Urine pH 6.5 Urine Specific [place] 1.015 Urine Protein Neg Urine Glucose (UA) Neg mg/dL Urine Ketones (Stick) Neg mg/dL Urine Blood Neg Urine Nitrite Neg Urine Bilirubin Neg Urine Urobilinogen Dipstick 0.2 mg/dL Urine Leukocyte Esterase Neg Bedside Urine HCG, Qualitative hcg negative Current Medications Medications (Trade) Dose Ordered Sig/Angie Route PRN Reason Start Time Stop Time Status Last Admin Dose Admin Acetaminophen (Tylenol) 1,000 mg 1X ONCE PO 08/12/18 19:00 08/12/18 19:01 DC 08/12/18 18:57 Ibuprofen (Motrin) 600 mg 1X ONCE PO 08/12/18 19:30 08/12/18 19:31 Ondansetron HCl (Zofran Odt) 4 mg 1X ONCE PO 08/12/18 19:30 08/12/18 19:31 EKG EKG Not performed[] Radiology/Procedures Radiology/Procedures Not performed[] Course & Med Decision Making Course & Med Decision Making Pertinent Labs and Imaging studies reviewed. (See chart for details) Patient's urine test was negative and urinalysis is unremarkable. Patient's symptoms appear consistent with a viral gastroenteritis. Patient treated with Zofran and ibuprofen in the emergency department. Advised continued oral hydration and rest at home with advancement of diet as tolerated. Prescribed Zofran and ibuprofen for continued outpatient treatment. Advised return to emergency department for any worsening symptoms. Recommended follow-up with primary doctor in the next 5 days for reevaluation. Patient was understanding and in agreement with treatment plan.[] Dragon Disclaimer Dragon Disclaimer This electronic medical record was generated, in whole or in part, using a voice recognition dictation system. Departure Departure: Impression: Primary Impression: Viral gastroenteritis Additional Impression: Negative test Disposition: HOME, SELF-CARE Condition: IMPROVED Referrals: SHIRA WILD DO (PCP) Patient Instructions: Viral Gastroenteritis Additional Instructions: Follow-up with your primary doctor in the next 5 days for reevaluation. Return to the emergency department for any worsening symptoms. Scripts Ibuprofen (IBUPROFEN) 600 Mg Tablet 600 MG PO Q6HRS PRN for HEADACHE, #30 TAB Prov: MANJU ROSARIO MD 08/12/18 Ondansetron Hcl (ZOFRAN) 4 Mg Tablet 1 TAB PO Q8HRS PRN for NAUSEA/VOMITING, #20 TAB Prov: MANJU ROSARIO MD 08/12/18 Problem Qualifiers MANJU ROSARIO MD Aug 12, 2018 18:43
[2018-08-12] MEDS: ACETAMINOPHEN 500 MG TABLET PO ONE (18:57)
[2018-08-12 19:07] LABS: COLOR,URINE STRAW
[2018-08-12 19:08] LABS: BILIRUBIN,URINE NEG (NEG); CLARITY,URINE CLEAR; GLUCOSE,URINE NEG (NEG); NITRITE,URINE NEG (NEG); UROBILINOGEN,URINE 0.2 mg/dL (0.2 mg/dL)
[2018-08-12] MEDS ORDERED: ONDA4TAB7 PO (19:34)
[2018-08-12] MEDS ORDERED: IBUP600T16 PO (19:34)
[2018-08-12] MEDS: IBUPROFEN 600 MG TABLET. PO ONE (19:35)
[2018-08-12] MEDS: ONDANSETRON ODT 4 MG TAB.RAPDIS PO ONE (19:35)
== END 2018-08-12 19:37 | disposition home or self-care (01) ==
LOC: ER 18:01
DX: Z32.02 Encounter for pregnancy test, result negative (principal); A08.4 Viral intestinal infection, unspecified; R51 Headache; F41.9 Anxiety disorder, unspecified; Z87.440 Personal history of urinary (tract) infections
CPT/HCPCS: 81003; 81025; 99284; Q0162

== ENCOUNTER 2018-11-11 13:02 | Emergency (ER) | payer OTHER ==
[~2018-11-11] VITALS: Ht 170.2 cm; Wt 73.7 kg
[~2018-11-11 13:02] MED LIST changes: +IBUP600T16 PO; +ONDA4TAB7 PO
[2018-11-11] MEDS ORDERED: HYDR-3165 PO (14:13)
--- NOTE | 2018-11-11 14:14 | PHYS DOC ---
Past History Past Medical History: Anxiety, UTI Past Surgical History: Tonsillectomy Smoking: Non-smoker Alcohol Use: None Drug Use: None Adult General Chief Complaint Chief Complaint: DENTAL PROBLEM HPI HPI 23-year-old female presents with dental pain. The patient states that she has had intermittent dental pain in her lower teeth mostly on the left. For the last 2-3 days she has had persistent pain in the front of her lower teeth. She thinks it is near one of her teeth it is crooked. She is wondering if her wisdom teeth coming in is pushing her other teeth forward. She also knows she has cavities in that general area and admits it could be from those. She has been trying to a dentist but no one seems to take her insurance. She comes to the ED because the pain is making it difficult for her to sleep. She has tried Tylenol and ibuprofen without relief. She denies chills. Review of Systems Review of Systems Constitutional: Denies fever or chills [] Eyes: Denies change in visual acuity, redness, or eye pain [] HENT: Denies nasal congestion or sore throat. Dental pain [] Respiratory: Denies cough or shortness of breath [] Cardiovascular: No additional information not addressed in HPI [] GI: Denies abdominal pain, nausea, vomiting, bloody stools or diarrhea [] : Denies dysuria or hematuria [] Musculoskeletal: Denies back pain or joint pain [] Integument: Denies rash or skin lesions [] Neurologic: Denies headache, focal weakness or sensory changes [] Endocrine: Denies polyuria or polydipsia [] All other systems were reviewed and found to be within normal limits, except as documented in this note. Allergies Allergies Allergies Coded Allergies Type Severity Reaction Last Updated Verified No Known Drug Allergies 06/27/15 No Physical Exam Physical Exam Constitutional: Well developed, well nourished, no acute distress, non-toxic appearance. [] HENT: Normocephalic, atraumatic, bilateral external ears normal, oropharynx moist, no oral exudates, nose normal. Multiple dental caries of the lower teeth , more on the left molars [] Eyes: PERRLA, EOMI, conjunctiva normal, no discharge. [] Neck: Normal range of motion, no tenderness, supple, no stridor. [] Cardiovascular:Heart rate regular rhythm, no murmur [] Lungs & Thorax: Bilateral breath sounds clear to auscultation [] Abdomen: Bowel sounds normal, soft, no tenderness, no masses, no pulsatile masses. [] Skin: Warm, dry, no erythema, no rash. [] Back: No tenderness, no CVA tenderness. [] Extremities: No tenderness, no cyanosis, no clubbing, ROM intact, no edema. [] Neurologic: Alert and oriented X 3, normal motor function, normal sensory function, no focal deficits noted. [] Psychologic: Affect normal, judgement normal, mood normal. [] Current Patient Data Vital Signs Vital Signs Date Time Temp Pulse Resp B/P (MAP) Pulse Ox O2 Delivery O2 Flow Rate FiO2 11/11/18 13:10 98.7 84 18 97 Room Air EKG EKG [] Radiology/Procedures Radiology/Procedures [] Course & Med Decision Making Course & Med Decision Making Pertinent Labs and Imaging studies reviewed. (See chart for details) I checked the prescription database the patient has only had 3 controlled substance prescriptions in the last year. The most recent was several months ago. I will give her a short course of [place] 5/325 for breakthrough pain. I told her this is the only prescription we will be able to provide and she needs to make it last. She we'll get more aggressive with the dental offices and try to get in this week. [] Dragon Disclaimer Dragon Disclaimer This electronic medical record was generated, in whole or in part, using a voice recognition dictation system. Departure Departure: Impression: Primary Impression: Pain, dental Additional Impression: Dental cavities Disposition: 01 HOME, SELF-CARE Condition: STABLE Referrals: YOLANDA MORALEZ (PCP) Patient Instructions: Dental Pain, [id number] Scripts Hydrocodone Bit/Acetaminophen ([place] 5-325 TABLET) 1 Each Tablet 1 TAB PO PRN Q6HRS PRN for PAIN, #10 TAB 0 Refills Prov: PARDEEP HOOVER DO 11/11/18 Problem Qualifiers PARDEEP HOOVER DO Nov 11, 2018 14:13
[2018-11-11 14:21] VITALS: BP 109/62
== END 2018-11-11 14:21 | disposition home or self-care (01) ==
LOC: ER 13:02
DX: K02.9 Dental caries, unspecified (principal); F41.9 Anxiety disorder, unspecified; Z87.440 Personal history of urinary (tract) infections
CPT/HCPCS: 99283

== ENCOUNTER 2019-02-03 22:21 | Emergency (ER) | payer SELFPAY ==
[~2019-02-03] VITALS: Ht 170.2 cm; Wt 73.2 kg
[2019-02-03 22:21] VITALS: BP 128/71
[~2019-02-03 22:21] MED LIST changes: +HYDR-3165 PO
[2019-02-03] MEDS ORDERED: QUET25TA5 PO (23:13)
--- NOTE | 2019-02-03 23:14 | PHYS DOC ---
Past History Past Medical History: Anxiety, UTI Past Surgical History: Tonsillectomy Smoking: Non-smoker Alcohol Use: None Drug Use: None Adult General Chief Complaint Chief Complaint: MEDICATION REFILL HPI HPI Patient is a 24 year old female who presents with medication withdrawal. She normally takes Paroxetine and Quetiapine for anxiety and depression. She ran out of quetiapine 2 days ago and is not able to get it refilled for another week due to difficulties with her insurance. She has had difficulty sleeping, has had a worsening headache and has felt nauseated. Her headache is in the frontal aspect of her head and is different than her normal headaches. She has had no trauma to her head. She has not taken any medication for her headache. She just completed her menstrual period. Review of Systems Review of Systems Constitutional: Denies fever or chills Eyes: Denies redness or eye pain HENT: Denies nasal congestion or sore throat Respiratory: Denies cough or shortness of breath Cardiovascular: Denies chest pain or palpitations GI: Denies abdominal pain; reports nausea : Denies dysuria or hematuria Musculoskeletal: Denies back pain or joint pain Integument: Denies rash or skin lesions Neurologic: Reports headache; denies focal weakness or sensory changes Complete systems were reviewed and found to be within normal limits, except as documented in this note. Current Medications Current Medications Current Medications Medications (Trade) Dose Ordered Sig/Angie Start Time Stop Time Status Last Admin Dose Admin Acetaminophen/ Butalbital/ Caffeine (Fioricet) 1 tab 1X ONCE 02/03/19 23:30 02/03/19 23:31 Ondansetron HCl (Zofran Odt) 4 mg 1X ONCE 02/03/19 23:30 02/03/19 23:31 Allergies Allergies Allergies Coded Allergies Type Severity Reaction Last Updated Verified No Known Drug Allergies 06/27/15 No Physical Exam Physical Exam Constitutional: Well developed, well nourished, no acute distress, non-toxic appearance. [] HENT: Normocephalic, atraumatic, bilateral external ears normal, oropharynx moist, no oral exudates, nose normal. [] Eyes: PERRL, EOMI, conjunctiva normal, no discharge. [] Neck: Normal range of motion, no tenderness. No meningeal signs Cardiovascular:Heart rate regular rhythm, no murmur [] Lungs & Thorax: Bilateral breath sounds clear to auscultation [] Abdomen: Soft, no tenderness Skin: Warm, dry, no erythema, no rash. [] Extremities: No tenderness, ROM intact, no edema. [] Neurologic: Alert and oriented X 3, normal motor function, normal sensory function, no focal deficits noted. [] Psychologic: Affect normal, judgement normal, Denies suicidal or homicidal ideation Current Patient Data Vital Signs Vital Signs Date Time Temp Pulse Resp B/P (MAP) Pulse Ox O2 Delivery O2 Flow Rate FiO2 02/03/19 22:21 97.9 72 16 128/71 (90) 100 Room Air EKG EKG [] Radiology/Procedures Radiology/Procedures [] Course & Med Decision Making Course & Med Decision Making Pertinent Labs and Imaging studies reviewed. (See chart for details) MS. Abernathy is a 24 year old female with a past medical history of anxiety and depression who presents for medication refill with concern for possible medication withdrawal. She takes Paroxetine and Quetiapine, and two days ago she ran out of Quetiapine. She is trying to work with her insurance company to get a refill. She has been having difficulty sleeping, headache, and nausea for the past day. She was wanting medication for her headache and a refill of her Quetiapine until she can get a refill from her doctor. Symptomatic treatment provided. Patient neurologically intact. NO meningeal signs. Denies suicidal or homicidal ideation. Rx for Seroquel 25mg x [address] able for discharge with outpatient follow-up with PCP. Discussed findings and plan with patient, who acknowledges understanding and agreement. [] Dragon Disclaimer Dragon Disclaimer This electronic medical record was generated, in whole or in part, using a voice recognition dictation system. Departure Departure: Impression: Primary Impression: Medication refill Disposition: HOME, SELF-CARE Condition: STABLE Referrals: YOLANDA MORALEZ (PCP) Patient Instructions: Medication Refill, Emergency Department Scripts Quetiapine Fumarate (SEROQUEL) 25 Mg Tablet 1 TAB PO QHS for depression, #14 TAB Prov: UZMA RILEY DO 02/03/19 UZMA RILEY DO Feb 03, 2019 23:14
[2019-02-03] MEDS ORDERED: ONDANSETRON ODT 4 MG TAB.RAPDIS PO ONE (23:30)
[2019-02-03] MEDS ORDERED: BUTALB/APAP/CAFEIN 50/325/40MG TABLET. PO ONE (23:30)
== END 2019-02-03 23:29 | disposition home or self-care (01) ==
LOC: ER 22:21
DX: F41.9 Anxiety disorder, unspecified (principal); F32.9 Major depressive disorder, single episode, unspecified; Z76.0 Encounter for issue of repeat prescription; F15.93 Other stimulant use, unspecified with withdrawal; Z87.440 Personal history of urinary (tract) infections
CPT/HCPCS: 81025; 99283; Q0162

== ENCOUNTER 2019-05-13 18:05 | Emergency (ER) | payer MEDICAID ==
[~2019-05-13] VITALS: Ht 170.2 cm; Wt 77.5 kg
[2019-05-13 18:05] VITALS: BP 106/62
[~2019-05-13 18:05] MED LIST changes: +QUET25TA5 PO
--- NOTE | 2019-05-13 18:17 | ED.ADGEN ---
Past History Past Medical History: Anxiety, Depression Past Surgical History: Tonsillectomy Smoking: Non-smoker Alcohol Use: None Drug Use: None Adult General Chief Complaint Chief Complaint ".. I never get sick.. .but .. I feeling fever... chills, congestion,... sore throat.. the last two days..." HPI HPI Patient is a 24 year old female who presents with above hx and complaints of Flu like symptoms. Patient complaining of fevers, malaise, arthralgia, congestion, sore throat, and myalgia. Patient normally healthy. Follows with Dr. Barrett. No history of travel or specific ill contacts. Did not receive flu vaccination this year. Review of Systems Review of Systems Constitutional complaints of fever or chills [] Eyes: Denies change in visual acuity, redness, or eye pain [] HENT: Complains of nasal congestion and sore throat [] Respiratory: Complaints of a nonproductive cough and wheezing Cardiovascular: No additional information not addressed in HPI [] GI: Denies abdominal pain, nausea, vomiting, bloody stools or diarrhea [] : Denies dysuria or hematuria [] Musculoskeletal: Denies back pain or joint pain [] Integument: Denies rash or skin lesions [] Neurologic: Denies headache, focal weakness or sensory changes [] Endocrine: Denies polyuria or polydipsia [] All other systems were reviewed and found to be within normal limits, except as documented in this note. Family History Family History Noncontributory Current Medications Current Medications Current Medications Medications (Trade) Dose Ordered Sig/Angie Start Time Stop Time Status Last Admin Dose Admin Albuterol Sulfate (Ventolin Hfa Inhaler) 2 puff 1X ONCE 05/13/19 20:15 05/13/19 20:16 DC 05/13/19 20:09 2 PUFF Prednisone (Prednisone) 50 mg 1X ONCE 05/13/19 20:15 05/13/19 20:16 DC 05/13/19 20:09 50 MG See nursing for home meds Allergies Allergies Allergies Coded Allergies Type Severity Reaction Last Updated Verified No Known Drug Allergies 06/27/15 No Physical Exam Physical Exam Constitutional: Well developed, well nourished, moderate acute distress, non- toxic appearance. [] HENT: Normocephalic, atraumatic, bilateral external ears normal, oropharynx moist, checked pharynx, no oral exudates, nose swollen injected turbinates with clear rhinorrhea Eyes: PERRLA, EOMI, conjunctiva normal, no discharge. [] Neck: Normal range of motion, no tenderness, supple, no stridor. [] Cardiovascular:Heart rate regular rhythm, no murmur [] Lungs & Thorax: Bilateral breath sounds with apex with scattered wheezes on auscultation [] Abdomen: Bowel sounds normal, soft, no tenderness, no masses, no pulsatile masses. [] Skin: Warm, dry, no erythema, no rash. [] Back: No tenderness, no CVA tenderness. [] Extremities: No tenderness, no cyanosis, no clubbing, ROM intact, no edema. [] Neurologic: Alert and oriented X 3, normal motor function, normal sensory function, no focal deficits noted. [] Psychologic: Affect anxious, judgement normal, mood normal. [] Current Patient Data Vital Signs Vital Signs Date Time Temp Pulse Resp B/P (MAP) Pulse Ox O2 Delivery O2 Flow Rate FiO2 05/13/19 18:05 97.9 80 14 100 Room Air Lab Results Laboratory Tests Test 05/13/19 18:25 05/13/19 18:27 05/13/19 18:30 Influenza Type A (Rapid) Negative (NEGATIVE) Influenza Type B (Rapid) Negative (NEGATIVE) Group A Streptococcus Rapid Negative (NEGATIVE) Urine Collection Type Unknown Urine Color Straw Urine Clarity Hazy Urine pH 6.5 Urine Specific [place] 1.010 Urine Protein Neg (NEG-TRACE) Urine Glucose (UA) Neg mg/dL (NEG) Urine Ketones (Stick) Neg mg/dL (NEG) Urine Blood Neg (NEG) Urine Nitrite Neg (NEG) Urine Bilirubin Neg (NEG) Urine Urobilinogen Dipstick 0.2 mg/dL (0.2 mg/dL) Urine Leukocyte Esterase Small (NEG) Urine RBC 0 /HPF (0-2) Urine WBC 1-4 /HPF (0-4) Urine Squamous Epithelial Cells Mod /LPF Urine Transitional Epithelial Cells Few /LPF Urine Bacteria Few /HPF (0-FEW) Urine Opiates Screen Neg (NEG) Urine Methadone Screen Neg (NEG) Urine Barbiturates Neg (NEG) Urine Phencyclidine Screen Neg (NEG) Urine Amphetamine/Methamphetamine Neg (NEG) Urine Benzodiazepines Screen Neg (NEG) Urine Cocaine Screen Neg (NEG) Urine Cannabinoids Screen Neg (NEG) Urine Ethyl Alcohol Neg (NEG) POC Urine HCG, Qualitative hcg negative (Negative) EKG EKG [] Radiology/Procedures Radiology/Procedures [] Course & Med Decision Making Course & Med Decision Making Pertinent Labs and Imaging studies reviewed. (See chart for details) Patient push fluids. Get adequate rest. Take Tylenol or ibuprofen needed for discomfort. Take prednisone 50 mg a day. Take Benadryl 25-50 mg 4 times a day for congestion and drainage. Patient uses MDI 2 puffs 4 times a day. Patient return if any concerns. Follow-up primary care. [] Final Impression Final Impression 1. Viral syndrome[] Dragon Disclaimer Dragon Disclaimer This electronic medical record was generated, in whole or in part, using a voice recognition dictation system. Dragon Disclaimer This chart was dictated in whole or in part using Voice Recognition software in a busy, high-work load, and often noisy Emergency Department environment. It may contain unintended and wholly unrecognized errors or omissions. GORDON ASCENCIO MD May 13, 2019 18:17
[2019-05-13 18:55] LABS: AMPHETAMINE/METHAMPHETAMINE NEG (NEG); BARBITURATES NEG (NEG); BENZODIAZEPINES NEG (NEG); CANNABINOIDS NEG (NEG); COCAINE NEG (NEG); METHADONE NEG (NEG); OPIATES NEG (NEG); PHENCYCLIDINE NEG (NEG)
[2019-05-13 19:12] LABS: BACTERIA,URINE FEW /HPF (0-FEW); BILIRUBIN,URINE NEG (NEG); CLARITY,URINE HAZY; COLOR,URINE STRAW; GLUCOSE,URINE NEG (NEG); NITRITE,URINE NEG (NEG); RBC,URINE 0 /HPF (0-2); UROBILINOGEN,URINE 0.2 mg/dL (0.2 mg/dL)
[2019-05-13 19:13] LABS: SQUAMOUS EPITHELIAL CELL,UR MOD /LPF
[2019-05-13 19:27] LABS: INFLUENZA A PATIENT NEGATIVE (NEGATIVE); INFLUENZA B PATIENT NEGATIVE (NEGATIVE)
[2019-05-13] MEDS ORDERED: PRED50TA PO (19:58)
[2019-05-13] MEDS ORDERED: ALBUTEROL SULFATE 8GM INHALER. INH ONE (20:15)
[2019-05-13] MEDS ORDERED: predniSONE 10 MG TABLET PO ONE (20:15)
== END 2019-05-13 20:15 | disposition home or self-care (01) ==
LOC: ER 18:05
DX: B34.9 Viral infection, unspecified (principal); Z90.89 Acquired absence of other organs
CPT/HCPCS: 36415; 80307; 81001; 81025; 87070; 87086; 87804; 87880; 94640; 99284; J7512; J7613